=== PATIENT | male | born 1980 | race Caucasian/White ===

== ENCOUNTER 2023-11-28 19:24 | Emergency (ER) | payer SELFPAY ==
[2023-11-28] MEDS ORDERED: HYDROcodone/Acetaminophen 5/325 mg Tablet ONE (21:18)
[2023-11-28] MEDS ORDERED: Sulfameth/Trimethoprim DS 800-160mg TAB ONE (22:26)
== END 2023-11-28 22:30 | disposition home or self-care (01) ==
LOC: ERS 19:24
DX: L03.115 Cellulitis of right lower limb (principal); R22.41 Localized swelling, mass and lump, right lower limb; I10 Essential (primary) hypertension; F17.210 Nicotine dependence, cigarettes, uncomplicated